=== PATIENT | male | born 1990 | race Caucasian/White ===

== ENCOUNTER 2023-10-14 23:29 | Emergency (ER) | payer BC ==
[~2023-10-14] VITALS: Ht 188 cm; Wt 97.7 kg
[2023-10-14 23:31] VITALS: TEMP 97.7
[2023-10-14] MEDS ORDERED: Amoxicillin/Clavulanate K+ 875/125 MG TAB PO ONE (23:45)
[2023-10-14] MEDS ORDERED: Rabies Immune Globulin PF 300 UNITS/2 ML VIAL IM ONE (23:45)
[2023-10-15] MEDS ORDERED: AMOXICILLIN 8751 TAB PO (00:25)
[2023-10-15 00:47] VITALS: BP 124/86; PULSE 79
== END 2023-10-15 00:47 | disposition home or self-care (01) ==
LOC: COL.ER 23:29
DX: S60.462A Insect bite (nonvenomous) of right middle finger, initial encounter (principal); Z29.14 Encounter for prophylactic rabies immune globulin; Z23 Encounter for immunization; W57.XXXA Bitten or stung by nonvenomous insect and other nonvenomous arthropods, initial encounter